=== PATIENT | female | born 1945 | race Caucasian/White ===

== ENCOUNTER 2016-12-11 21:38 | Emergency (ER) | payer MEDICARE ==
[~2016-12-11] VITALS: Ht 167.6 cm; Wt 175.0 kg
[2016-12-11] MEDS ORDERED: SYNT50TA PO (22:13)
[2016-12-11] MEDS ORDERED: ARMO1TAB PO (22:13)
[2016-12-11 23:45] VITALS: BP 158/93
[2016-12-11] MEDS ORDERED: FLUORESCEIN OPHTH 1 MG STRIP OD ONE (23:45)
[2016-12-11] MEDS ORDERED: TETRACAINE 0.5% OPHTH SOLN 4ML OD ONE (23:45)
[2016-12-12] MEDS ORDERED: TOBRAMYCIN 0.3% OPHTH SOLN 5 ML OU ONE (00:30)
== END 2016-12-12 00:44 | disposition home or self-care (01) ==
LOC: M ED 21:38
DX: S05.01XA Injury of conjunctiva and corneal abrasion without foreign body, right eye, initial encounter (principal); S05.02XA Injury of conjunctiva and corneal abrasion without foreign body, left eye, initial encounter; X58.XXXA Exposure to other specified factors, initial encounter; Y92.099 Unspecified place in other non-institutional residence as the place of occurrence of the external cause; Y93.89 Activity, other specified; Y99.9 Unspecified external cause status; E03.9 Hypothyroidism, unspecified; Z79.899 Other long term (current) drug therapy; Z88.8 Allergy status to other drugs, medicaments and biological substances